=== PATIENT | female | born 1990 ===

== ENCOUNTER 2017-04-05 20:18 | Emergency (ER) | payer OTHER ==
[2017-04-05 20:50] VITALS: BP 117/80; PULSE 71; RESP 20; TEMP 97.7; O2SAT 100
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
== END 2017-04-05 21:13 | disposition home or self-care (01) ==
LOC: C.ER 20:18
DX: S00.83XA Contusion of other part of head, initial encounter (principal); Y08.89XA Assault by other specified means, initial encounter